=== PATIENT | male | born 1960 | race Caucasian/White ===

== ENCOUNTER 2021-08-31 21:06 | Emergency (ER) | payer MEDICAID ==
[~2021-08-31] VITALS: Ht 165.1 cm; Wt 55.9 kg
[2021-08-31 22:15] VITALS: BP 147/89
[2021-08-31] MEDS ORDERED: FOLIC ACID 1 MG TABLET PO ONE (23:15)
[2021-08-31] MEDS ORDERED: MULTIVITAMINS WITH IRON TABLET PO ONE (23:15)
[2021-08-31] MEDS ORDERED: THIAMINE 100 MG TABLET PO ONE (23:15)
== END 2021-08-31 23:30 | disposition home or self-care (01) ==
LOC: EMS 21:10
DX: F10.20 Alcohol dependence, uncomplicated (principal); Y90.9 Presence of alcohol in blood, level not specified; Z59.00 Homelessness unspecified
CPT/HCPCS: 99284; Z7502; Z7610